=== PATIENT | male | born 1980 | race Caucasian/White ===

== ENCOUNTER 2017-11-09 19:26 | Emergency (ER) | payer MEDICAID ==
[~2017-11-09] VITALS: Ht 170.2 cm; Wt 70.0 kg
[~2017-11-09 19:26] MED LIST: CORTIS10A AD; VIST50CA PO; Z.0.NO CURRENT MEDS
[2017-11-09 19:52] VITALS: BP 158/98; PULSE 83; RESP 18; TEMP 98.4; O2SAT 100
[2017-11-09] MEDS ORDERED: MAGNESIUM CITRATE SOLN 300 ML BTL PO ONE (20:15)
--- NOTE | 2017-11-09 20:15 | PD ---
HPI Chief Complaint: GI Complaint Time Seen by Provider: 20:04 Travel History International Travel<30 days: No Contact w/Intl Traveler<30days: No Traveled to known affect area: No History of Present Illness HPI Patient is a 36-year-old male who for the last 3 days has had decreased stool he has been straining to go in the last day he has had no stool at all 2 days ago he had little rocks now he feels pressure in his rectum he has abdominal pain. He denies any change in his diet and any change in medication no family history of colon cancer. No family history of diverticulitis diverticula patient is here with constipation without any knowledge then he did have blood on the paper to toilet paper and is worried that he is bleeding as well as in the ER he only complains of localized rectal pain there is no radiation there is no epigastric pain he reports the stools having blood inside the actual stool this happened to him once in the past about 3 months ago it resolved without any intervention he has not taken any medications no laxatives no enemas symptoms continue in the ER PFSH Past Medical History Anxiety: Yes Diminished Hearing: No Musculoskeletal: Yes (BACK SPASMS) Past Surgical History Other Surgery: Yes (CYST REMOVED FROM RIGHT LEG) Social History Alcohol Use: Yes (OCC) Tobacco Use: No Substance Use: Yes (MARIJUANA) Allergies-Medications (Allergen,Severity, Reaction): Coded Allergies: No Known Allergies (Verified Allergy, Unknown, 11/09/17) Reported Meds & Prescriptions Reported Meds & Active Scripts Active Miralax Powder (Polyethylene Glycol 3350 Powder) 17 Gm Powd 17 Gm PO DAILY Mix and dissolve one measuring cap-ful (17 grams) in water or juice. Vistaril 50 MG CAP (Hydroxyzine Pamoate) 50 Mg Cap 50 Mg PO Q6HR PRN Cortisporin Otic (Neomycin/Polymyxin/Hydrocortisone) 10 Ml Susp 3 Drop AD QID 7 Days FOR 10 DAYS Reported No Current Meds (Miscellaneous Medication) [facility] Review of Systems Except as stated in HPI: all other systems reviewed are Neg Physical Exam Narrative GENERAL: awake alert no distress SKIN: Warm and dry. HEAD: Atraumatic. Normocephalic. EYES: Pupils equal and round. No scleral icterus. No injection or drainage. ENT: No nasal bleeding or discharge. Mucous membranes pink and moist. NECK: Trachea midline. No JVD. CARDIOVASCULAR: Regular rate and rhythm. RESPIRATORY: No accessory muscle use. Clear to auscultation. Breath sounds equal bilaterally. RECTAL guaiac positive brown hard stool felt in vault of rectum GASTROINTESTINAL: Abdomen soft, non-tender, nondistended. Hepatic and splenic margins not palpable. MUSCULOSKELETAL: Extremities without clubbing, cyanosis, or edema. No obvious deformities. NEUROLOGICAL: Awake and alert. No obvious cranial nerve deficits. Motor grossly within normal limits. Five out of 5 muscle strength in the arms and legs. Normal speech. PSYCHIATRIC: Appropriate mood and affect; insight and judgment normal. Data Data Last Documented VS Vital Signs Date Time Temp Pulse Resp B/P (MAP) Pulse Ox O2 Delivery O2 Flow Rate FiO2 11/09/17 19:52 98.4 83 18 158/98 (118) 100 Orders Orders Magnesium Citrate Liq (Citroma Liq) (11/09/17 20:15) Fleets Enema (Adult) (Fleets Enema (Adul (11/09/17 23:30) Diatrizoate Liq ( Gastroview Liq) (11/09/17 23:45) Oral Contrast - Adult (11/09/17 23:46) Ct Abd/Pel W/O Iv Contrast (11/09/17 ) Bucket, Enema Cleansing Ea (11/10/17 03:19) Ed Discharge Order (11/10/17 04:21) MDM Medical Decision Making Medical Screen Exam Complete: Yes Emergency Medical Condition: Yes Differential Diagnosis pt is constipated vs colon obstruction vs mass vs other will do CT to determine cause Narrative Course pt is given soap suds enema with good results, pt had large BM and feels " amazing" "like 10 years young" pt had CT that showed multiple round balls of stool throughout the descending colon. Diagnosis Primary Impression: Constipation Qualified Codes: K59.00 - Constipation, unspecified Patient Instructions: Constipation (ED), General Instructions Scripts Polyethylene Glycol 3350 Powder (Miralax Powder) 17 Gm Powd 17 GM PO DAILY for Constipation, #1 CAN 0 Refills Mix and dissolve one measuring cap-ful (17 grams) in water or juice. Prov: Dante Quintanilla MD 11/10/17 Disposition: 01 DISCHARGE HOME Condition: Good Dante Quintanilla MD Nov 09, 2017 20:15
[2017-11-09] MEDS ORDERED: SOD PHOSPHATE/SOD BIPHOSPHATE (ADULT) ENEMA 133ML RECTAL ONE (23:30)
[2017-11-09] MEDS ORDERED: DIATRIZOATE MEGLUM/DIATRIZOATE SOD 9 ML CUP PO ONE (23:45)
--- NOTE | 2017-11-10 03:19 | RADRPT ---
EXAM DATE/TIME: 11/10/2017 02:47 [facility] COMPARISON: No previous studies available for comparison. INDICATIONS : Abdominal pain and constipation. ORAL CONTRAST: Prescribed oral contrast ingested. RADIATION DOSE: 5.88 CTDIvol (mGy) MEDICAL HISTORY : None SURGICAL HISTORY : None. ENCOUNTER: Initial ACUITY: 1 week PAIN SCALE: 7/10 LOCATION: abdomen TECHNIQUE: Volumetric scanning of the abdomen and pelvis was performed. Using automated exposure control and ad justment of the mA and/or kV according to patient size, radiation dose was kept as low as reasonably achievable to obtain optimal diagnostic quality images. DICOM format image data is available electro nically for review and comparison. FINDINGS: LOWER LUNGS: The visualized lower lungs are clear. LIVER: Homogeneous density without lesion for noncontrast technique. There is no dilation of the biliary tr ee. No calcified gallstones. SPLEEN: Normal size without lesion. PANCREAS: Within normal limits. KIDNEYS: Normal in size and shape. There is no mass, stone, or hydronephrosis. ADRENAL GLANDS: Within normal limits. VASCULAR: There is no aortic aneurysm. BOWEL/MESENTERY: No dilated loops of small or large bowel. Oral contrast passes through to the rectum. There is flui d without contrast in the right colon and transverse colon. No evidence of free fluid. ABDOMINAL WALL: Within normal limits. RETROPERITONEUM: There is no lymphadenopathy. BLADDER: No wall thickening or mass. REPRODUCTIVE: Within normal limits. INGUINAL: There is no lymphadenopathy or hernia. MUSCULOSKELETAL: Within normal limits for patient age. CONCLUSION: 1. No dilated loops of small or large bowel. 2. Oral contrast does pass through to the rectum, but there is unopacified lumen in the right colon a nd transverse colon which precludes evaluation for intraluminal pathology in those segments of the co mir. Tim Landin MD on November 10, 2017 at 3:12 Board Certified Radiologist. This report was verified electronically.
[2017-11-10] MEDS ORDERED: MIRA3350 PO (04:19)
== END 2017-11-10 04:57 | disposition home or self-care (01) ==
LOC: NEPE 19:26
DX: K59.00 Constipation, unspecified (principal)
CPT/HCPCS: 74176; 99284; Q9963

== ENCOUNTER 2018-01-04 18:58 | Emergency (ER) | payer MEDICAID ==
[~2018-01-04] VITALS: Ht 167.6 cm; Wt 68.0 kg
[~2018-01-04 18:58] MED LIST changes: +MIRA3350 PO
[2018-01-04 19:41] VITALS: BP 130/80; PULSE 100; RESP 18; TEMP 99.2
--- NOTE | 2018-01-04 21:12 | PD ---
HPI . constipation Chief Complaint: Dizziness Time Seen by Provider: 20:51 Travel History International Travel<30 days: No Contact w/Intl Traveler<30days: No Traveled to known affect area: No History of Present Illness HPI Patient is a 37-year-old male who was in our ER in the past saying he had diarrhea however when we ended up doing x-rays and CAT scans he had fecal impaction that was relieved after a soapsuds enema and he felt much improved and went home now this is about a month later he is returning feeling is having similar situation he says it only improves if he eats raw food if he ever eats anything like pork or beef he becomes constipated is in the ER complaining of constipation he does not have any distention he does not have any pain in his rectum patient says he also feels dizzy and has burning in his eyes he reports it could be related 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 in the ER he is complaining only of periumbilical pain as well as feeling of constipation and bloating PFSH Past Medical History Anxiety: Yes Diminished Hearing: No Musculoskeletal: Yes (BACK SPASMS) Tetanus Vaccination: > 5 Years Influenza Vaccination: No Past Surgical History Other Surgery: Yes (CYST REMOVED FROM RIGHT LEG) Social History Alcohol Use: Yes (OCC) Tobacco Use: No Substance Use: Yes (MARIJUANA) Allergies-Medications (Allergen,Severity, Reaction): Coded Allergies: No Known Allergies (Verified Allergy, Unknown, 01/04/18) Reported Meds & Prescriptions Reported Meds & Active Scripts Active Miralax Powder (Polyethylene Glycol 3350 Powder) 17 Gm Powd 17 Gm PO DAILY Mix and dissolve one measuring cap-ful (17 grams) in water or juice. Vistaril 50 MG CAP (Hydroxyzine Pamoate) 50 Mg Cap 50 Mg PO Q6HR PRN Cortisporin Otic (Neomycin/Polymyxin/Hydrocortisone) 10 Ml Susp 3 Drop AD QID 7 Days FOR 10 DAYS Reported No Current Meds (Miscellaneous Medication) Misc Review of Systems Except as stated in HPI: all other systems reviewed are Neg Gastrointestinal: Positive: Constipation Physical Exam Narrative GENERAL: pt is no apparent distress SKIN: Warm and dry. HEAD: Atraumatic. Normocephalic. EYES: Pupils equal and round. No scleral icterus. No injection or drainage. ENT: No nasal bleeding or discharge. Mucous membranes pink and moist. NECK: Trachea midline. No JVD. CARDIOVASCULAR: Regular rate and rhythm. RESPIRATORY: No accessory muscle use. Clear to auscultation. Breath sounds equal bilaterally. GASTROINTESTINAL: Abdomen soft, non-tender, nondistended. Hepatic and splenic margins not palpable. MUSCULOSKELETAL: Extremities without clubbing, cyanosis, or edema. No obvious deformities. NEUROLOGICAL: Awake and alert. No obvious cranial nerve deficits. Motor grossly within normal limits. Five out of 5 muscle strength in the arms and legs. Normal speech. PSYCHIATRIC: Appropriate mood and affect; insight and judgment normal. Data Data Last Documented VS Vital Signs Date Time Temp Pulse Resp B/P (MAP) Pulse Ox O2 Delivery O2 Flow Rate FiO2 01/04/18 19:41 99.2 100 18 130/80 (97) Orders Orders Fleets Enema (Adult) (Fleets Enema (Adul (01/04/18 21:15) Abdomen, Flat & Upright (01/04/18 ) Bucket, Enema Cleansing Ea (01/05/18 01:55) Ed Discharge Order (01/05/18 05:35) MDM Medical Decision Making Medical Screen Exam Complete: Yes Emergency Medical Condition: Yes Medical Record Reviewed: Yes Diagnosis Primary Impression: Constipation Qualified Codes: K59.00 - Constipation, unspecified Patient Instructions: Constipation (ED), General Instructions Dante Quintanilla MD Jan 04, 2018 21:12
[2018-01-04] MEDS ORDERED: SOD PHOSPHATE/SOD BIPHOSPHATE (ADULT) ENEMA 133ML RECTAL ONE (21:15)
--- NOTE | 2018-01-04 21:41 | RADRPT ---
EXAM DATE: 01/04/2018 9:38 PM EDT AGE/SEX: 37 years / Male INDICATIONS: Constipation. CLINICAL DATA: This is the patient's initial encounter. Patient reports that signs and symptoms have been present for 4 - 6 days and indicates a pain score of 3/10. MEDICAL/SURGICAL HISTORY: . No pertinent history. . No pertinent history. COMPARISON: No prior exams available for comparison. FINDINGS: Supine and upright views of the abdomen were performed. The abdominal bowel gas pattern is normal. No air-fluid levels are seen. No abnormal masses, calcifications, or organomegaly is seen. The visualiz ed lower lungs are clear. No evidence of free intraperitoneal gas. The osseous structures are unremar kable. There is a moderate amount of fecal material throughout the colon. CONCLUSION: No evidence of obstruction. Constipation Electronically signed by: Wil Leung MD 01/04/2018 9:40 PM EDT
== END 2018-01-05 06:17 | disposition home or self-care (01) ==
LOC: NEPC 18:58
DX: K59.00 Constipation, unspecified (principal); F12.90 Cannabis use, unspecified, uncomplicated
CPT/HCPCS: 74019; 99283

== ENCOUNTER 2018-01-06 21:57 | Emergency (ER) | payer MEDICAID ==
[~2018-01-06] VITALS: Ht 172.7 cm; Wt 72.0 kg
[2018-01-06 22:12] VITALS: BP 143/92; PULSE 130; RESP 20; TEMP 102; O2SAT 99
[2018-01-06 22:58] VITALS: PULSE 105; RESP 18
[2018-01-06] MEDS ORDERED: valACYclovir HCL 500 MG TAB PO ONE (23:30)
[2018-01-06] MEDS ORDERED: SODIUM CHLOR 0.9% 1000 ML INJ 1,000 ML IV ONE ×2 (23:30)
[2018-01-06] MEDS ORDERED: ACETAMINOPHEN 500 MG CPLT PO ONE (23:30)
--- NOTE | 2018-01-06 23:30 | PD ---
HPI Chief Complaint: Skin Problem Time Seen by Provider: 23:06 Travel History International Travel<30 days: No Contact w/Intl Traveler<30days: No Traveled to known affect area: No History of Present Illness HPI 37-year-old man, presents emerged department with diffuse pustular rash face trunk and extremities ongoing for the past day or so associated with fever. Denies ever having had previous similar symptoms. Denies any medical history. From [place]. Is not please had chickenpox before. No history of chickenpox immunizations. His boss recently had zoster. He had some burning in his eyes. Diffuse pruritus. No other complaints. History Past Medical History Medical History: Denies Significant Hx Tetanus Vaccination: Unknown Influenza Vaccination: No Social History Alcohol Use: Yes (OCC) Tobacco Use: No Allergies-Medications (Allergen,Severity, Reaction): Coded Allergies: No Known Allergies (Verified Allergy, Unknown, 01/06/18) Reported Meds & Prescriptions Reported Meds & Active Scripts Active Miralax Powder (Polyethylene Glycol 3350 Powder) 17 Gm Powd 17 Gm PO DAILY Mix and dissolve one measuring cap-ful (17 grams) in water or juice. Vistaril 50 MG CAP (Hydroxyzine Pamoate) 50 Mg Cap 50 Mg PO Q6HR PRN Cortisporin Otic (Neomycin/Polymyxin/Hydrocortisone) 10 Ml Susp 3 Drop AD QID 7 Days FOR 10 DAYS Reported No [facility] Meds [facility]Miscellaneous Medication) [facility] Review of Systems Except as stated in HPI: all other systems reviewed are Neg Physical Exam Narrative GENERAL: Well-appearing 37-year-old man, no acute distress. SKIN: Focused skin assessment warm/dry. Scattered numerous diffuse pustular lesions in various stages of development without much scabbing yet. HEAD: Atraumatic. Normocephalic. EYES: Pupils equal and round. No scleral icterus. No injection or drainage. ENT: No nasal bleeding or discharge. Mucous membranes pink and moist. No lesions in the mouth. NECK: Trachea midline. No JVD. CARDIOVASCULAR: Regular rate and rhythm. No murmur appreciated. RESPIRATORY: No accessory muscle use. Clear to auscultation. Breath sounds equal bilaterally. GASTROINTESTINAL: Abdomen soft, non-tender, nondistended. Hepatic and splenic margins not palpable. MUSCULOSKELETAL: No obvious deformities. No edema. NEUROLOGICAL: Awake and alert. No obvious cranial nerve deficits. Motor grossly within normal limits. Normal speech. PSYCHIATRIC: Appropriate mood and affect; insight and judgment normal. Data Data Last Documented VS Vital Signs Date Time Temp Pulse Resp B/P (MAP) Pulse Ox O2 Delivery O2 Flow Rate FiO2 01/06/18 22:58 105 18 01/06/18 22:12 102.0 143/92 (109) 99 Orders Orders Complete Blood Count With Diff (01/06/18 23:21) Comprehensive Metabolic Panel (01/06/18 23:21) Lactic Acid Sepsis Protocol (01/06/18 23:21) Iv Access Insert/Monitor (01/06/18 23:21) Sodium Chlor 0.9% 1000 Ml Inj (Ns 1000 M (01/06/18 23:30) Sodium Chlor 0.9% 1000 Ml Inj (Ns 1000 M (01/06/18 23:30) Isolation 08,20 (01/06/18 23:21) Acetaminophen (Tylenol) (01/06/18 23:30) Valacyclovir (Valtrex) (01/06/18 23:30) Labs Laboratory Tests Test 01/06/18 23:10 01/06/18 23:15 White Blood Count 3.6 TH/MM3 Red Blood Count 5.17 MIL/MM3 Hemoglobin 14.6 GM/DL Hematocrit 41.8 % Mean Corpuscular Volume 80.8 FL Mean Corpuscular Hemoglobin 28.3 PG Mean Corpuscular Hemoglobin Concent 35.1 % Red Cell Distribution Width 13.0 % Platelet Count 117 TH/MM3 Mean Platelet Volume 9.2 FL Neutrophils (%) (Auto) 60.9 % Lymphocytes (%) (Auto) 22.9 % Monocytes (%) (Auto) 15.8 % Eosinophils (%) (Auto) 0.1 % Basophils (%) (Auto) 0.3 % Neutrophils # (Auto) 2.2 TH/MM3 Lymphocytes # (Auto) 0.8 TH/MM3 Monocytes # (Auto) 0.6 TH/MM3 Eosinophils # (Auto) 0.0 TH/MM3 Basophils # (Auto) 0.0 TH/MM3 CBC Comment DIFF FINAL Differential Comment Blood Urea Nitrogen 14 MG/DL Creatinine 1.28 MG/DL Random Glucose 110 MG/DL Total Protein 7.8 GM/DL Albumin 3.9 GM/DL Calcium Level 8.7 MG/DL Alkaline Phosphatase 144 U/L Aspartate Amino Transf (AST/SGOT) 81 U/L Alanine Aminotransferase (ALT/SGPT) 121 U/L Total Bilirubin 0.5 MG/DL Sodium Level 133 MEQ/L Potassium Level 4.1 MEQ/L Chloride Level 98 MEQ/L Carbon Dioxide Level 28.1 MEQ/L Anion Gap 7 MEQ/L Estimat Glomerular Filtration Rate 64 ML/MIN Lactic Acid Level 0.7 mmol/L [facility] Medical Decision Making Medical Screen Exam Complete: Yes Emergency Medical Condition: Yes Interpretation(s) LABS: CBC is remarkable for mildly low white count. CMP remarkable for mildly elevated AST ALT and alk phos. Lactate 0.7 Differential Diagnosis VZV, immune suppression, infection, complication of VZV, smallpox Narrative Course Medical decision making INITIAL 37 woman presents with diffuse pustular rash clinical history suggestive of VZV. Rash in different stages of maturation suggest against small box or other. Recent exposure to zoster strongly suggest VZV also. He has fever and tachycardia. We will give him fluids, check labs. Will start Valtrex. Diagnosis Primary Impression: VZV (varicella-zoster virus) infection Additional Instructions: Take Valtrex as prescribed. Use acetaminophen as needed for fever. Return to the emergency department for any new or worsening symptoms. Med/Other Pt SpecificInfo: Prescription(s) given Scripts Valacyclovir (Valtrex) 1,000 Mg Tab 1000 MG PO TID for Mgmt Viral Infection for 7 Days, #21 TAB 0 Refills Prov: Demetrio Baumann MD 01/07/18 Disposition: 01 DISCHARGE HOME Condition: Stable Demetrio Baumann MD Jan 06, 2018 23:30
[2018-01-07 00:01] LABS: ALBUMIN 3.9 GM/DL (3.4-5.0); ALT (GPT) 121 U/L (12-78); AST (GOT) 81 U/L (15-37); BICARBONATE 28.1 MEQ/L (21.0-32.0); BLOOD UREA NITROGEN 14 MG/DL (7-18); CALCIUM 8.7 MG/DL (8.5-10.1); CHLORIDE 98 MEQ/L (98-107); CREATININE 1.28 MG/DL (0.60-1.30); GLOMERULAR FILTRATION RATE 64 ML/MIN (>89); GLUCOSE,RANDOM 110 MG/DL (74-106); SODIUM (NA) 133 MEQ/L (136-145)
[2018-01-07 00:03] LABS: ALKALINE PHOSPHATASE 144 U/L (45-117); TOTAL BILIRUBIN ADULT 0.5 MG/DL (0.2-1.0); TOTAL PROTEIN 7.8 GM/DL (6.4-8.2)
[2018-01-07 00:04] LABS: AUTOMATED NEUTROPHIL # 2.2 TH/MM3 (1.8-7.7); BASOPHIL % 0.3 % (0.0-2.0); EOSINOPHIL % 0.1 % (0.0-4.0); HEMATOCRIT 41.8 % (39.0-51.0); HEMOGLOBIN 14.6 GM/DL (13.0-17.0); LYMPH % 22.9 % (9.0-44.0); LYMPHOCYTE # 0.8 TH/MM3 (1.0-4.8); MEAN CELL VOLUME 80.8 FL (80.0-100.0); MEAN CORPUSCULAR HEMOGLOBIN 28.3 PG (27.0-34.0); MEAN CORPUSCULAR HGB CONC 35.1 % (32.0-36.0); MEAN PLATELET VOLUME 9.2 FL (7.0-11.0); MONO % 15.8 % (0.0-8.0); MONOCYTE # 0.6 TH/MM3 (0-0.9); NEUT % 60.9 % (16.0-70.0); PLATELET COUNT 117 TH/MM3 (150-450); RED BLOOD COUNT 5.17 MIL/MM3 (4.50-5.90); WHITE BLOOD COUNT 3.6 TH/MM3 (4.0-11.0)
[2018-01-07] MEDS ORDERED: VALT1TAB PO (01:00)
[2018-01-07 01:02] VITALS: TEMP 98.9
== END 2018-01-07 02:04 | disposition home or self-care (01) ==
LOC: NEPE 21:57
DX: B02.9 Zoster without complications (principal); B01.9 Varicella without complication; R00.0 Tachycardia, unspecified; R50.9 Fever, unspecified
CPT/HCPCS: 80053; 83605; 85025; 99284; J7030